=== PATIENT | female | born 1960 | race Caucasian/White ===

== ENCOUNTER 2016-06-02 08:29 | Day surgery (SDC) | payer BC ==
[~2016-06-02 08:29] MED LIST: Lactated Ringers 1,000 ML IV SCH; Lidocaine 1%/Sod Bicarbonate in NS 8.4% 1 ML Syringe IV PRN; Sodium Chloride 0.9% 10 ML Syringe FLUSH PRN
[2016-06-02] MEDS ORDERED: Lidocaine 1% 4 ML ONE ×2 (08:52→09:57)
[2016-06-02] MEDS ORDERED: Propofol 200 MG/20 ML SDV ONE ×2 (08:54→09:57)
[2016-06-02] MEDS ORDERED: Neostigmine Methylsulfate 1 MG/ML 5 ML Syringe ONE (09:11)
--- NOTE | 2016-06-02 09:11 | PCM.PREANE ---
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 (see below) Other OB/BYN History: herpes genitalis, vaginal atrophy, dysmenorrhea, menorrhagia, , hysteroscopy Musculoskeletal History: Reports: Other (see below) Other Musculoskeletal History: osteopenia Neurological History: Reports: Migraines Psychiatric History: Reports: None Endocrine/Metabolic History: Reports: None Hematologic History: Reports: None Immunologic History: Reports: None Oncologic (Cancer) History: Reports: None Dermatologic History: Reports: None - Past Surgical History Head Surgeries/Procedures: Reports: None HEENT Surgical History: Reports: Tonsillectomy Cardiovascular Surgical History: Reports: Varicose Female Surgical History: Reports: Breast implant, section, Cervical cryotherapy Other Female Surgeries/Procedures: L breast implant ruptured Musculoskeletal Surgical History: Reports: ORIF Other Musculoskeletal Surgeries/Procedures:: ORIF L little finger - HOME MEDS Home Medications: Home Meds Acyclovir [Zovirax] 400 mg PO DAILY 06/01/16 [History] Estrogens, Conjugated [Premarin Vaginal Crm] 1 dose TOP ASDIRECTED 06/01/16 [ History] SUMAtriptan Succinate [Sumatriptan Succinate] 100 mg PO ASDIRECTED PRN 06/01/16 [History] - CURRENT (IN HOUSE) MEDS Current Meds: Current Medications Lactated Ringer's (Ringers, Lactated) 1,000 mls @ 125 mls/hr IV ASDIRECTED HARLEY Stop: 06/02/16 23:00 Lidocaine/Sodium Bicarbonate (Buffered Lidocaine 1% In Ns 8.4%) 0.25 ml IV ONETIME PRN PRN Reason: Prior to IV Start Stop: 06/02/16 18:00 Sodium Chloride (Saline Flush) 10 ml FLUSH ASDIRECTED PRN PRN Reason: Keep Vein Open Stop: 06/02/16 18:00 Discontinued Medications Lidocaine HCl (Xylocaine-Mpf 1%) Confirm Administered Dose 4 mls @ as directed .ROUTE .STK-MED ONE Stop: 06/02/16 08:53 Propofol (Diprivan 20 Ml) Confirm Administered Dose 200 mg .ROUTE .STK-MED ONE Stop: 06/02/16 08:55 Preanesthetic Assessment - ANESTHESIA/TRANSFUSION/FAMILY HX Anesthesia/Transfusion History: No Prior Transfusion(s), Prior Anesthesia (no problems ) Type of Anesthesia Reaction: Reports: Unknown Family History of Anesthesia Reaction: No Intubation History: Unknown Type of Transfusion Reactions: Reports: Unknown - REVIEW OF SYSTEMS Constitutional: Reports: no symptoms COUNCILMAN: Reports: no symptoms (Pt had a migraine last night ( took 2000mg imitrex last night at midnight)) Respiratory: Reports: no symptoms Cardiovascular: Reports: no symptoms GI: Reports: no symptoms Other: Reports: None - PHYSICAL ASSESSMENT HR: 74 O2 Sat by Pulse Oximetry: 96 RR: 16 BP: 116/80 Temp: 37.6 C Height: 1.63 m Weight: 58.06 kg NPO Status Date: 06/01/16 NPO Status Time: 23:55 ASA Class: 2 Mental Status: Alert & Oriented x3 Airway Class: Mallampati = 1 Dentition: Reports: Normal Dentition Thyro-Mental Finger Breadths: 3 Mouth Opening Finger Breadths: 3 ROM/Head Extension: Full Respiratory Status: lungs clear to auscultation bilaterally Cardiovascular Status: regular rate & rhythm, normal S1, S2, no murmur, blood pressure WNL - ALLERGIES Allergies/Adverse Reactions: Allergies Allergy/AdvReac Type Severity Reaction Status Date / Time No Known Allergies Allergy Verified 06/01/16 14:23 - BLOOD Blood Available: No Product(s) Available: None - ANESTHESIA PLAN Preop Beta Toby: No Anesthesia Type Planned: MAC - ACKNOWLEDGEMENTS Pt an Appropriate Candidate for the Planned Anesthesia: Yes Alternatives and Risks of Anesthesia Discussed w Pt/Guardian: Yes Pt/Guardian Understands and Agrees with Anesthesia Plan: Yes
[2016-06-02] MEDS ORDERED: Albuterol 6.7 GM Inhaler INH ONE (09:28)
[2016-06-02] MEDS ORDERED: fentaNYL 100 MCG/2 ML SDV ONE (09:57)
[2016-06-02] MEDS ORDERED: Midazolam 1 MG/ML 2 ML SDV ONE (09:57)
--- NOTE | 2016-06-02 10:16 | PCM.OPNOTE ---
[id number] Findings: normal exam Pre Op Diagnosis: screening colonoscopy Post-Op Diagnosis: normal exam Anesthesia Technique: MAC, Moderate sedation Primary Surgeon: Ozzie Stevenson Pathology: none EBL in mLs: 0 Complications: None Condition: Good Free Text/Narrative:: After adequate IV sedation and analgesia was obtained the patient was placed on her left side. Perianal inspection and digital rectal examination were normal. A lubricated colonoscope was inserted into the rectum and advanced to the cecum without difficulty. The bowel preparation was excellent. The cecum, right colon , transverse, and descending colons were endoscopically normal with no mass lesions or inflammatory changes seen. The sigmoid was unremarkable as well. The rectum in both views was endoscopically normal. Machine Deburrer photographs were taken for the patient and for the record. Air was removed, as I finished the procedure, which she tolerated well.
--- NOTE | 2016-06-02 10:28 | PCM48HPAN ---
Post Anesthesia Note - EVALUATION WITHIN 48HRS OF ANESTHETIC Vital Signs in Normal Range: Yes Patient Participated in Evaluation: Yes Respiratory Function Stable: Yes Airway Patent: Yes Cardiovascular Function Stable: Yes Hydration Status Stable: Yes Pain Control Satisfactory: Yes Nausea and Vomiting Control Satisfactory: Yes Mental Status Recovered: Yes
[2016-06-02 10:33] VITALS: BP 126/70
== END 2016-06-02 11:01 | disposition home or self-care (01) ==
LOC: JD.SDS 08:29
PROVIDERS: ATTEND Surgery
PROC: 0DJD8ZZ Inspection of Lower Intestinal Tract, Via Natural or Artificial Opening Endoscopic (ICD-10-PCS; principal; 2016-06-02)
DX: Z12.11 Encounter for screening for malignant neoplasm of colon (principal); E78.00 Pure hypercholesterolemia, unspecified; M85.80 Other specified disorders of bone density and structure, unspecified site; J30.2 Other seasonal allergic rhinitis; Z79.899 Other long term (current) drug therapy
CPT/HCPCS: 45378; A9270; J2250; J2710; J7120; 00810; J2704; J3010

== ENCOUNTER 2018-04-17 01:10 | Emergency (ER) | payer BC ==
[2018-04-17 01:21] VITALS: BP 153/101
[2018-04-17] MEDS ORDERED: Metoclopramide 10 MG/2 ML SDV IVPUSH ONE (01:29)
[2018-04-17] MEDS ORDERED: diphenhydrAMINE 50 MG/ML SDV IVPUSH ONE (01:30)
[2018-04-17] MEDS ORDERED: Dextrose 5%-0.9% NaCl 1,000 ML IV SCH (01:30)
[2018-04-17] MEDS ORDERED: Ketorolac 30 MG/ML SDV IVPUSH SCH (01:30)
--- NOTE | 2018-04-17 01:35 | EDM.PDOC ---
ED HPI GENERAL MEDICAL PROBLEM - General Chief Complaint: Headache Stated Complaint: Migraine Time Seen by Provider: 04/17/18 01:29 Source of Information: Reports: Patient, Family (spouse) History Limitations: Reports: No Limitations - History of Present Illness INITIAL COMMENTS - FREE TEXT/NARRATIVE: 58-year-old female presents to the ED with a severe headache. Patient states she is a chronic migraine supper usually has at least 2 headaches per week. She did have a bad migraine yesterday as well. Today she has taken Imitrex 2. Is also taken Tylenol with no relief of headache currently pain is 8 or 9 out of 10. Constant and throbbing right lateral frontal temporal scalp perhaps worse on the left as compared to the right. Headache is no different than what she is exposed in the past. She has no visual acuity changes. She has no malfunction of any beer extremities. No pain in her neck. Is extremely nauseated but has not vomited. Onset: Sudden Onset Date: 04/17/18 Onset Time: 20:00 Duration: Hour(s): Location: Reports: Head (Grade headache) Quality: Reports: Ache, Pressure, Throbbing, Other Severity: Severe (Pulsating 9 on a 10) Improves with: Reports: None Worsens with: Reports: None Context: Reports: Other. Denies: Activity, Exercise, Lifting, Sick Contact Associated Symptoms: Reports: Headaches, Nausea/Vomiting. 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 last night) Headache Pain Score (Numeric/FACES): 10 - Related Data Allergies Allergy/AdvReac Type Severity Reaction Status Date / Time No Known Allergies Allergy Verified 04/17/18 01:21 Home Meds: Home Meds SUMAtriptan succinate [Sumatriptan Succinate] 100 mg PO ASDIRECTED PRN 06/01/16 [History] Acetaminophen with Codeine [Tylenol with Codeine #3 Tablet] 1 - 2 tab PO Q4H PRN 04/17/18 [History] Ketorolac [Toradol] 10 mg PO Q6H PRN #5 tab 04/17/18 [Rx] Metoclopramide HCl [Reglan] 10 mg PO Q6H PRN #5 tablet 04/17/18 [Rx] Past Medical History HEENT History: Reports: Impaired Vision, Sinusitis, Other (See Below) Other HEENT History: seasonal allergies, wears glasses Cardiovascular History: Reports: High Cholesterol Respiratory History: Reports: None Gastrointestinal History: Reports: None 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 (See Below) 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 LIGHT BULB TESTER History: herpes genitalis, vaginal atrophy, dysmenorrhea, menorrhagia, , hysteroscopy Musculoskeletal History: Reports: Other (See Below) Other Musculoskeletal History: veins stripped in legs, surgery to finger Neurological History: Reports: Migraines Psychiatric History: Reports: Depression Endocrine/Metabolic History: Reports: None Hematologic History: Reports: None Immunologic History: Reports: None Oncologic (Cancer) History: Reports: None Dermatologic History: Reports: None - Past Surgical History Head Surgeries/Procedures: Reports: None HEENT Surgical History: Reports: Tonsillectomy Female Surgical History: Reports: Breast Implant, Section, Cervical Cryotherapy Social & Family History - Family History Family Medical History: Noncontributory - Tobacco Use Smoking Status *Q: Never Smoker Second Hand Smoke Exposure: No - Caffeine Use Caffeine Use: Reports: Coffee - Recreational Drug Use Recreational Drug Use: No - Living Situation & Occupation Living situation: Reports: Occupation: Employed ED ROS GENERAL - Review of Systems Review Of Systems: See Below Constitutional: Denies: Fever, Chills, Malaise, Weakness, Decreased Appetite, Weight Loss HEENT: Reports: Glasses Respiratory: Reports: No Symptoms Cardiovascular: Reports: No Symptoms Endocrine: Reports: No Symptoms GI/Abdominal: Reports: Nausea. Denies: Vomiting : Reports: No Symptoms Musculoskeletal: Reports: No Symptoms Skin: Reports: No Symptoms Neurological: Reports: Headache. Denies: Confusion, Dizziness, Numbness, Paresthesia, Pre-Existing Deficit, Seizure, Syncope, Tingling, Tremors, Trouble Speaking, Difficulty Walking, Weakness, Change in Speech Psychiatric: Reports: No Symptoms Hematologic/Lymphatic: Reports: No Symptoms Immunologic: Reports: No Symptoms - Physical Exam Exam: See Below Exam Limited By: No Limitations General Appearance: Alert, WD/WN, Mild Distress, Other (She is alert oriented and answers all questions) Eye Exam: Bilateral Eye: Normal Inspection ( appropriately. She was examined in a darkened room.), PERRL Head Exam: Atraumatic, Normocephalic. No: Scalp Lacerations, Scalp Swelling Neck: Normal Inspection, Supple, Non-Tender, Full Range of Motion. No: Lymphadenopathy (L), Lymphadenopathy (R) Respiratory/Chest: No Respiratory Distress, Lungs Clear, Normal Breath Sounds, No Accessory Muscle Use Cardiovascular: Regular Rate, Rhythm, No Edema, No Gallop, Other Neuro Exam (Abbreviated): Alert, Oriented, CN II-XII Intact, Normal Cognition, No Motor/Sensory Deficits Extremities: Normal Inspection, Normal Range of Motion, Non-Tender Psychiatric: Normal Affect, Normal Mood Skin Exam: Warm, Dry, Intact, Normal Color, No Rash Course - Vital Signs Last Recorded V/S: Last Vital Signs Temp 36.1 C 04/17/18 01:18 Pulse 85 04/17/18 01:18 Resp 14 04/17/18 01:18 BP 153/101 H 04/17/18 01:18 Pulse Ox 100 04/17/18 01:18 - Orders/Labs/Meds Orders: Active Orders 24 hr Category Date Time Status Dextrose 5%-0.9% NaCl [Dextrose 5%-Normal Saline] 1,000 Med 04/17/18 01:30 Active ml IV ASDIRECTED Medication Orders Dextrose/Sodium Chloride (Dextrose 5%-Normal Saline) 1,000 mls @ 150 mls/hr IV ASDIRECTED HARLEY Last Admin: 04/17/18 01:46 Dose: 150 mls/hr Meds: Medications Generic Name Dose Route Start Last Admin Trade Name Freq PRN Reason Stop Dose Admin Dextrose/Sodium Chloride 1,000 mls @ 150 mls/hr 04/17/18 01:30 04/17/18 01:46 Dextrose 5%-Normal Saline IV 150 mls/hr ASDIRECTED HARLEY Administration Discontinued Medications Generic Name Dose Route Start Last Admin Trade Name Freq PRN Reason Stop Dose Admin Diphenhydramine HCl 25 mg 04/17/18 01:30 04/17/18 01:50 Benadryl IVPUSH 04/17/18 01:31 25 mg ONETIME ONE Administration Ketorolac Tromethamine 30 mg 04/17/18 01:30 Toradol IVPUSH ONETIME HARLEY Ketorolac Tromethamine 30 mg 04/17/18 01:47 04/17/18 01:48 Toradol IVPUSH 04/17/18 01:48 30 mg ONETIME ONE Administration Metoclopramide HCl 7.5 mg 04/17/18 01:29 04/17/18 01:46 Reglan IVPUSH 04/17/18 01:30 7.5 mg ONETIME ONE Administration - Radiology Interpretation Free Text/Narrative:: 58-year-old female presents to the ED with a bad migraine headache. She states she is a chronic migraine headache supper. Usually gets 2 headaches per month. The headache yesterday and the day before. Current headache started last evening about 2000 hrs. She has taken Imitrex 100 mg orally 2 and some Tylenol with no relief. Headache is no different than what she expression the past. It is bifrontal bitemporal and perhaps a little worse in the left side as compared to the right. No neck pain. Associated nausea without vomiting. Neuro exam is normal. Plan IV D5 normal saline at 150 mils per hour. Will give Toradol 30 mg IV with Benadryl 25 mg IV and Reglan 7.5 mg IV. - Re-Assessments/Exams Free Text/Narrative Re-Assessment/Exam: 04/17/18 02:14 patient reports headache is about 60% better. Will therefore discharge her home in the care of her who is here to provide a ride. Departure - Departure Time of Disposition: 02:15 Disposition: Home, Self-Care 01 Condition: Fair Clinical Impression: Migraine headache Qualifiers: Migraine type: without aura Status migrainosus presence: without status migrainosus Intractability: not intractable Qualified Code(s): G43.009 - Migraine without aura, not intractable, without status migrainosus - Discharge Information Prescriptions: Ketorolac [Toradol] 10 mg PO Q6H PRN #5 tab PRN Reason: Migraine headache Metoclopramide HCl [Reglan] 10 mg PO Q6H PRN #5 tablet PRN Reason: migraine headache Referrals: Juan See MD [Primary Care Provider] - Forms: ED Department Discharge Additional Instructions: Evaluation the emergency room this morning in regards to blunt of a migraine headache for the second day a role. Failure of home treatment with Imitrex 2 doses. Treated in the ED with IV fluids. Even Toradol 30 mg IV with Benadryl 25 mg IV and Reglan 7.5 mg IV for headache relief which proved to be fairly successful. I will therefore write a prescription for Toradol 10 mg tablet and Reglan 10 mg tablet and you can trial these medications in the future for headache relief. Take one tablet of each at onset of severe headache or after Imitrex has been tried in is not successful. You have 5 tablets of each to try it for 5 times in a row to see if it provides any benefit or relief of migraine headache. Is of course she can have your personal physician feel this medication for you. - My Orders Last 24 Hours: My Active Orders 04/17/18 01:30 Dextrose 5%-0.9% NaCl [Dextrose 5%-Normal Saline] 1,000 ml IV ASDIRECTED - Assessment/Plan Last 24 Hours: My Active Orders 04/17/18 01:30 Dextrose 5%-0.9% NaCl [Dextrose 5%-Normal Saline] 1,000 ml IV ASDIRECTED
[2018-04-17] MEDS ORDERED: Ketorolac 30 MG/ML SDV IVPUSH ONE (01:47)
== END 2018-04-17 02:40 | disposition home or self-care (01) ==
LOC: JD.ED 01:10
DX: G43.009 Migraine without aura, not intractable, without status migrainosus (principal); E78.00 Pure hypercholesterolemia, unspecified; Z79.899 Other long term (current) drug therapy
CPT/HCPCS: 96361; 96374; 96375; 99284; J1200; J1885; J2765; J7042